=== PATIENT | female | born 1960 | race Caucasian/White ===

== ENCOUNTER 2023-07-21 16:22 | Outpatient (CLI) | payer BC, MEDICAID, SELFPAY ==
--- NOTE | 2023-07-21 16:46 | XR_ITS ---
WS: [id number] Exam: XR hip RT 2-3V wo/w pel* [id number] Date/Time of Exam: 07/21/2023 4:46 PM Reason For Exam: RT. HIP PAIN No acute fracture noted. There is end-stage osteoarthritis with [id number] articulation. There is f lattening of the femoral head with subcortical cyst formation. Large osteophyte projects along the la teral margin of the acetabulum. Normal soft tissues. IMPRESSION: 1. End stage degenerative change with [id number] articulation. No fracture.
== END 2023-07-21 16:23 | disposition home or self-care (01) ==
PROVIDERS: Visit Provider Nurse Practitioner Family
DX: M16.11 Unilateral primary osteoarthritis, right hip (principal); M25.751 Osteophyte, right hip
CPT/HCPCS: 73502

== ENCOUNTER → 2023-08-17 11:11 | Outpatient (BNVA) | payer BC, MEDICAID, SELFPAY | PROVIDERS: Referring Provider Nurse Practitioner Family; Visit Provider Specialist | DX: M16.11 Unilateral primary osteoarthritis, right hip | CPT/HCPCS: 73502 ==

== ENCOUNTER → 2023-09-26 08:27 | Outpatient (BNVA) | payer BC, MEDICAID, SELFPAY | PROVIDERS: Visit Provider Nurse Practitioner | DX: M16.11 Unilateral primary osteoarthritis, right hip; M87.051 Idiopathic aseptic necrosis of right femur | CPT/HCPCS: 73502 ==

== ENCOUNTER 2023-10-03 15:44 | Outpatient (CLI) | payer BC, MEDICAID, SELFPAY ==
--- NOTE | 2023-10-03 16:00 | CT_ITS ---
WS: [id number] CT RIGHT HIP, NONCONTRAST. HISTORY: Rule out avascular necrosis Technique: All CT scans at [facility] use at least one of these dose optimization techniques: automated exposure control; mA and/or kV adjustment per patient size (includes targeted exams where dose is matched to clinical indication); or iterative reconstruction. DLP: 667.89 mGy.cm COMPARISON: Radiograph 09/26/2023 Severe narrowing of the RIGHT hip joint. Acetabular osteophytic ridging encasing the femoral head. Th ere is also osteophytic ridging around the femoral head-neck junction. Subchondral cysts are noted in volving the femoral head and also the acetabulum. Mixed sclerotic and lytic changes. Bony protuberanc e at the femoral head and neck junction. There is bone upon bone involving the superior lateral aceta bulum. No fracture. There is no collapse of the femoral head. These changes does not appear to be sandra scular necrosis. Mild atrophy of the muscle surrounding the hip. No adenopathy. No destructive bone lesions. IMPRESSION: 1. Severe RIGHT hip osteoarthritis with development of osteophytic ridging as described above. 2. No fractures and no CT evidence for avascular necrosis.
[2023-10-03] MEDS: iohexol 350 mg/mL 500 mL Btl (per mL) IV (17:06)
== END 2023-10-03 15:45 | disposition home or self-care (01) ==
LOC: RAD 15:44
PROVIDERS: Visit Provider Nurse Practitioner
DX: M16.11 Unilateral primary osteoarthritis, right hip (principal); M25.551 Pain in right hip
CPT/HCPCS: 73701; Q9967